=== PATIENT | female | born 1965 | race Hispanic/Latino ===

== ENCOUNTER 2024-03-19 09:26 | Outpatient (CLI) | payer OTHER, SELFPAY ==
--- NOTE | 2024-03-19 | ECG_ITS ---
Test Date: 2024-03-19 10:24:42 Measurements Intervals [place] Rate: 63 P: 34 OR: 144 QRS: 74 QRSD: 79 T: 69 QT: 382 QTc: 392 Interpretive Statements SINUS RHYTHM NONSPECIFIC T-WAVE ABNORMALITY No previous ECG available for comparison Electronically Signed On 03-19-2024 12:29:31 CDT by Vikas Chow M.D.
== END 2024-03-19 09:27 | disposition home or self-care (01) ==
LOC: ANHCARD 09:32
PROVIDERS: PCP Physician Assistant; Visit Provider Physician Assistant
DX: R42 Dizziness and giddiness (principal)
CPT/HCPCS: 93005